=== PATIENT | male | born 1935 | race Caucasian/White ===

== ENCOUNTER 2016-10-19 10:22 | Day surgery (SDC) | payer MEDICARE, OTHER ==
--- NOTE | ~2016-10-19 | EGD ---
EGD REPORT [facility] [address] [place] [address] NAME: CHRISTIAN WOODARD : [birth year] STATUS : REG [facility] PAT#: [id number] AGE: 81 ADM/REG DATE : 10/19/16 MR#: [id number] REPORT SERV DATE: 10/19/16 DICTATED BY: MARCELA ROBLES DATE: 10/19/16 REPORT STATUS : Draft TRANSCRIBED BY: [facility] DATE: 10/19/16 [facility] Patient Name: Christian Woodard Date of : 1935 Attending MD: MARCELA ROBLES MD Procedure Date No Time: 10/19/2016 Procedure: Colonoscopy Indications: High risk colon cancer surveillance: Personal history of colonic polyps, (Lat colon 07/2014) Referring MD: PIPPA CISNEROS Medicines: See the Anesthesia note for documentation of the administered medications Complications: No immediate complications. Procedure: Pre-Anesthesia Assessment: - ASA Grade Assessment: III - A patient with severe systemic disease. After I obtained informed consent, the scope was passed under direct vision. Throughout the procedure, the patient's blood pressure, pulse, and oxygen saturations were monitored continuously. The PCF [id number] was introduced through the anus and advanced to the cecum, identified by appendiceal orifice and ileocecal valve. The colonoscopy was technically difficult and complex due to significant looping. The patient tolerated the procedure well. The quality of the bowel preparation was adequate. Findings: The perianal and digital rectal examinations were normal. Internal hemorrhoids were found during retroflexion and were small. Diverticula were found in the sigmoid colon and in the descending colon. A sessile polyp was found in the proximal descending colon. The polyp was 10 mm in size. The polyp was removed with a hot snare. Resection and retrieval were complete. A pedunculated polyp was found in the sigmoid colon. The polyp was 10 mm in size. The polyp was removed with a hot snare. Resection and retrieval were complete. Two sessile polyps were found in the recto-sigmoid colon. The polyps were small in size. These polyps were removed with a cold snare. Resection and retrieval were complete (one not retrieved). Impression: - Internal hemorrhoids. - Diverticulosis in the sigmoid colon and in the descending colon. - One 10 mm polyp in the proximal descending colon. EGD REPORT [place] [id number] [facility] [place]. [address] NAME: CHRISTIAN WOODARD : 37 STATUS : REG [facility]#: [id number] AGE: 81 ADM/REG DATE : 10/19/16 MR#: [id number] REPORT SERV DATE: 10/19/16 DICTATED BY: MARCELA ROBLES DATE: 10/19/16 REPORT STATUS : Draft TRANSCRIBED BY: [facility] DATE: 10/19/16 Resected and retrieved. - One 10 mm polyp in the sigmoid colon. Resected and retrieved. - Two small polyps at the recto-sigmoid colon. Resected and retrieved. Recommendation: - Patient has a contact number available for emergencies. The signs and symptoms of potential delayed complications were discussed with the patient. Return to normal activities tomorrow. Written discharge instructions were provided to the patient. - Regular diet. - Continue present medications. - Repeat colonoscopy is not recommended for surveillance. - Return to my office in 1 year. - FOR YOUR BIOPSY RESULTS: Please go to [email or web address] and register to receive your results via the portal. Your biopsy results will be posted there in about 7 to 10 days. IF you do not see result in 10 days, call office. Procedure Code(s): --- Professional --- 16851, Colonoscopy, flexible, proximal to splenic flexure; with removal of tumor(s), polyp(s), or other lesion(s) by snare technique Diagnosis Code(s): --- Professional --- K64.8, Other hemorrhoids K57.30, Diverticulosis of large intestine without perforation or abscess without bleeding D12.7, Benign neoplasm of rectosigmoid junction D12.5, Benign neoplasm of sigmoid colon D12.4, Benign neoplasm of descending colon Z86.010, Personal history of colonic polyps CPT copyright 2013 [employer]. All rights reserved. The codes documented in this report are preliminary and upon director sales and trade marketing review may be revised to meet current compliance requirements. Marcela Robles MD MARCELA ROBLES MD 10/19/2016 1:19 PM This report has been signed electronically. Number of Addenda: 0 EGD REPORT [facility] [address] [facility] [address] NAME: CHRISTIAN WOODARD : [birth year] STATUS : REG [facility] PAT#: [id number] AGE: 81 ADM/REG DATE : 10/19/16 MR#: [id number] REPORT SERV DATE: 10/19/16 DICTATED BY: MARCELA ROBLES DATE: 10/19/16 REPORT STATUS : Draft TRANSCRIBED BY: [employer] DATE: 10/19/16 Note Initiated On: 10/19/2016 12:44 PM Scope Withdrawal Time 0 hours 14 minutes 1 second [address] [place] [address]
[~2016-10-19 10:22] MED LIST: AMB10 PO; AMB5 PEG; AMB5 PO; ANTIBIOTIC TOP; ATV.5 PO; ATV1 PO; GAVISCO2 PO; GAVISCON6 PO; LOP25 PEG; LOP25 PO; LORT7 PO; NASONEX NAS; NEXIUM40 PO; PREV30 PEG; PREV30 PO; PRILO PO; PRIN20 PEG; PRIN20 PO; PROSCAR5 PO; T PO; TOPXL25 PO; TUMSROLL PO; UROXATRAL PO
== END 2016-10-19 23:59 | disposition home or self-care (01) ==
LOC: DMU 10:22
PROVIDERS: Internal Medicine Gastroenterology
PROC: 0DBP8ZX Excision of Rectum, Via Natural or Artificial Opening Endoscopic, Diagnostic (ICD-10-PCS; 2016-10-19)
PROC: 0DBN8ZX Excision of Sigmoid Colon, Via Natural or Artificial Opening Endoscopic, Diagnostic (ICD-10-PCS; 2016-10-19)
PROC: 0DBM8ZX Excision of Descending Colon, Via Natural or Artificial Opening Endoscopic, Diagnostic (ICD-10-PCS; principal; 2016-10-19 12:30)
DX: D12.4 Benign neoplasm of descending colon (principal); K63.5 Polyp of colon; K64.8 Other hemorrhoids; K57.30 Diverticulosis of large intestine without perforation or abscess without bleeding; I10 Essential (primary) hypertension; M19.90 Unspecified osteoarthritis, unspecified site; K21.9 Gastro-esophageal reflux disease without esophagitis; N40.0 Benign prostatic hyperplasia without lower urinary tract symptoms; Z86.010 Personal history of colon polyps; Z85.038 Personal history of other malignant neoplasm of large intestine; Z88.5 Allergy status to narcotic agent; Z98.890 Other specified postprocedural states
CPT/HCPCS: 88305